=== PATIENT | male | born 1985 | race Caucasian/White ===

== ENCOUNTER 2022-08-06 18:38 | Emergency (ER) | payer OTHER, SELFPAY ==
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
[2022-08-06 18:43] VITALS: BP 118/68; PULSE 100; RESP 18; TEMP 36.6; O2SAT 98; BMI 37.1
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
[2022-08-06 22:24] VITALS: BP 119/84; PULSE 88; RESP 22; O2SAT 99
[2022-08-06] MEDS: Ibuprofen 600 MG TABLET PO (23:51)
== END 2022-08-06 23:56 | disposition home or self-care (01) ==
PROVIDERS: Emergency Provider Emergency Medicine
DX: Z04.1 Encounter for examination and observation following transport accident (principal); M79.10 Myalgia, unspecified site
CPT/HCPCS: 70450; 71045; 72125; 99283; 99284

== ENCOUNTER 2023-11-08 06:49 | Emergency (ER) | payer OTHER, SELFPAY ==
[2023-11-08 07:08] VITALS: BP 138/85; PULSE 109; O2SAT 99
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
--- NOTE | 2023-11-08 07:20 | MHC.EDTECH ---
pt changed over with [facility] from security. Belongings sent to tere.
[2023-11-08 07:21] VITALS: BP 115/65; PULSE 99; RESP 20; TEMP 37.2; O2SAT 99; BMI 36.3
--- NOTE | 2023-11-08 07:23 | PC.NURSE ---
Denies SI/ HI reports tried heroin for the first time. Reports snorted the heroin and then woke up with EMS. Matthew calling to ask why patient is in the ER , patient stating okay to tell matthew why he is here. Matthew updated , stating she will call his mother
[2023-11-08 07:52] LABS: Appearance Urine Clear; Color Urine Yellow; Glucose Urine UA 250 mg/dL (Negative); Leukocyte Esterase Urine Negative (Negative); Nitrite Urine Negative (Negative); UMIC TRIGGER UACC YES; Urine Blood Small (1+) (Negative); Urine Ketones Negative (Negative); Urine Protein 30 (1+) mg/dL (Neg-Trace)
[2023-11-08 08:05] LABS: Bacteria Urine None Seen (None Seen); Hyaline Casts Urine 0-2 /LPF (0-2); RBC Urine 0-2 /HPF (0-2); Squamous Epithelial Cell Urine 0-2 /HPF (0-2); WBC Urine 0-5 /HPF (0-5)
[2023-11-08 08:06] LABS: Amphetamine Screen Urine Not Detected (Not Detect); Barbiturates, Urine Not Detected (Not Detect); Benzodiazepines Screen Urine Not Detected (Not Detect); Buprenorphine Scr Not Detected (Not Detect); Cannabinoid Screen Urine POSITIVE (Not Detect); Cocaine Screen Urine POSITIVE (Not Detect); Fentanyl, urine POSITIVE (Not Detect); Methadone Screen, Urine Not Detected (Not Detect); Opiate Screen Urine POSITIVE (Not Detect); Oxycodone Screen Urine Not Detected (Not Detect); Phencyclidine Screen Urine Not Detected (Not Detect)
[2023-11-08] MEDS: Ondansetron ODT 4 MG TAB.RAPDIS TRANSLINGU (09:39)
--- NOTE | 2023-11-08 09:40 | PC.NURSE ---
Family at bedside, medicated per mar, seen by recovery
--- NOTE | 2023-11-08 10:24 | HO.SUDE ---
Met with pt in [id number] after pt presented after accidental overdose. Per triage note, patient reported he tried heroin for the first time, was given 12mg of Narcan by bystanders. Pt laying in bed, asleep, wakes to voice, difficult to engage in conversation, guarded and mumbles quietly. Pt reports using heroin/fentanyl, 1 bag IN this morning, which resulted in overdose. Pt reports he has not used heroin/fentanyl, pills, pressed pills, or opioids in the past. Pt reports he used today due to being bored. Pt reports he typically uses cocaine, INH. Pt reports last cocaine use yesterday, 1 gram, INH. Prior to yesterday pt reports last use was 3 months ago. Pt reports he has been able to maintain recovery utilizing God. Pt reports he has stopped going to [employer] but after today's incident plans on returning. Pt denies hx treatment for SHAY in the past. Pt reports he has supportive family and friends. Educated pt on recovery resources and supports as well as overdose prevention strategies. Pt is not interested in referrals at this time, will follow up outpatient if needed. Provided pt with written resources as well as t/w contact information if questions or concerns arise. Pt denies questions or concerns for t/w.
--- NOTE | 2023-11-08 12:11 | PC.NURSE ---
Resting comfortably, no further episodes of nausea/ vomiting , provider aware
[2023-11-08 13:30] VITALS: BP 119/69; PULSE 89; RESP 18; TEMP 37.2; O2SAT 98
[2023-11-08 13:34] VITALS: BP 119/69; PULSE 89; RESP 18; TEMP 37.2; O2SAT 98
[2023-11-08 13:48] VITALS: BP 119/69; PULSE 89; RESP 18; TEMP 37.2; O2SAT 98
== END 2023-11-08 13:49 | disposition home or self-care (01) ==
PROVIDERS: Emergency Provider Emergency Medicine
DX: T50.901A Poisoning by unspecified drugs, medicaments and biological substances, accidental (unintentional), initial encounter (principal); Y92.9 Unspecified place or not applicable; F14.10 Cocaine abuse, uncomplicated; F11.10 Opioid abuse, uncomplicated; F12.10 Cannabis abuse, uncomplicated; Z71.51 Drug abuse counseling and surveillance of drug abuser; Z79.899 Other long term (current) drug therapy
CPT/HCPCS: 80307; 81001; 99284; 99285

== ENCOUNTER 2024-02-23 16:09 | Emergency (ER) | payer OTHER, SELFPAY ==
[2024-02-23 16:30] VITALS: BP 121/65; PULSE 81; RESP 19; TEMP 36.5; O2SAT 98; BMI 17.8
--- NOTE | 2024-02-23 17:31 | ED.GENADULT ---
HPI - General Adult General Chief complaint: General Medical Stated complaint: toenail coming off Time Seen by Provider: 02/23/24 17:31 Source: patient Mode of arrival: ambulatory Limitations: no limitations History of Present Illness ED Provider: Pastora Quintanilla PA-C HPI narrative: Patient is a 38 year old assigned male at with no reported medical history presenting to the emergency department today with left great toe pain and back pain. Patient states that multiple years ago he injured his left great toe and his nail grew back incorrectly. Patient states that last night, he was tired of looking at the toe nail and tried to rip it off. Patient states that he only got half way done ripping it off when he stopped because it hurt. Patient states that he also had a fall 2 weeks ago and has middle back pain. Patient denies any dizziness, lightheadedness, abdominal pain, nausea, vomiting, fever, chills, blurry vision, double vision, loss of vision, chest pain, difficulty breathing, shortness of breath, back pain, night sweats, pain with urination, increased urinary frequency, increased urinary urgency, blood in his urine or stool, syncope or a near syncopal episode, bowel incontinence, bladder incontinence, or any other complaints at this time. Relieving factors: none Exacerbating factors: none Associated symptoms: denies other symptoms Treatments prior to arrival: none Related Data Previous Rx's ?Medication ?Instructions ?Recorded cyclobenzaprine 10 mg tablet 10 mg PO TID PRN muscle spasm #10 08/06/22 tabs ibuprofen 600 mg tablet 600 mg PO Q8H PRN fever or pain 08/06/22 #20 tabs cephalexin 500 mg capsule 500 mg PO Q6H 7 days #28 caps 02/23/24 naproxen 500 mg tablet 500 mg PO BID 7 days #14 tabs 02/23/24 Allergies Allergy/AdvReac Type Severity Reaction Status Date / Time No Known Allergies Allergy Verified 02/23/24 16:33 Review of Systems Constitutional: Constitutional: Reports no additional constitutional complaints, Denies chills, Denies fever(s) and Denies night sweats Eyes: Eyes: Reports no additional eye complaints, Denies blurry vision, Denies change in vision, Denies diplopia, Denies eye discharge, Denies loss of vision and Denies eye pain ENT: Denies dizziness Cardiovascular: Cardiovascular: Reports no additional cardiovascular complaints, Denies chest pain, Denies lightheadedness, Denies Loss of Consciousness and Denies dyspnea Respiratory: Respiratory: Reports no additional respiratory complaints and Denies dyspnea Gastrointestinal: Gastrointestinal: Reports no additional gastrointestinal complaints, Denies abdominal pain, Denies melena, Denies hematochezia, Denies change in bowel habits and Denies change in stool character Genitourinary: Genitourinary: Reports no additional male genitourinary complaints, Denies hematuria, Denies oliguria, Denies difficulty urinating, Denies dysuria, Denies urinary frequency, Denies urinary hesitancy, Denies urinary incontinence and Denies urinary urgency Musculoskeletal: Musculoskeletal: Reports no additional musculoskeletal complaints, Reports back pain, Denies numbness and Denies tingling Comments: left great toe nail partially removed Neurologic: Denies dizziness, Denies loss of vision, Denies numbness and Denies tingling Psychiatric: Psychiatric: Reports no additional psychiatric complaints Endocrine: Endocrine: Reports no additional endocrine complaints Hematologic/Lymphatic: Hematologic/Lymphatic: Reports no additional hematologic/lymphatic complaints Allergic/Immunologic: Allergic/Immunologic: Reports no additional allergic/immunologic complaints PMFSH Past Medical History Attestation statement: The following information was validated with the patient. Source: old records reviewed and nursing notes reviewed Social History Social History Alcohol intake: former Substance Use Type: Crack/Cocaine, Heroin and Marijuana Advance Directives: No Advance Directives Information Provided: No Do you have a plan to hurt others: No Plan Physical Exam ED Vital Signs: Vital Signs - 24 hr 02/23/24 16:30 Temperature 97.7 F Pulse Rate 81 Respiratory Rate 19 Blood Pressure 121/65 Pulse Oximetry 98 Oxygen Delivery Method Room Air BMI result Body Mass Index 17.8 Const General: cooperative, no acute distress, alert and awake Nutritional Appearance: well nourished Orientation/consciousness: patient oriented x3 Limitations: no limitations HENMT Head: Yes normal to inspection and Yes atraumatic Ears: hearing grossly normal bilaterally and external ears normal General nose exam: Normal external nose present, no nasal discharge noted and no epistaxis Face and sinus: Yes normal facial exam, No abrasion and No laceration Mouth: Normal oral and palatal mucosa present, no drooling and no muffled voice Eyes General: appearance normal, both eyes and all related structures Periorbital: periorbital findings normal Eyelids: Yes eyelids normal Conjunctivae: conjunctivae normal Pupils: Equal, round and reactive pupils present EOM: EOMs intact bilaterally Neck Neck: Yes normal visual inspection, Yes full ROM and Yes no lymphadenopathy Chest Chest palpation & inspection: normal inspection of the chest Resp Effort & Inspection: normal respiratory effort and able to speak in complete sentences GI Inspection: Yes normal to inspection Neuro General: patient oriented x3 and moves all extremities Cranial nerves: Yes Equal, round and reactive pupils present Cognition (Neuro): normal cognition Extrem Other: partially avulsed left great toe nail General: Yes full ROM and Yes capillary refill normal Psych Appearance: grossly normal Mental Status: mental status grossly normal Affect: normal affect Attitude: cooperative Thought process: Normal thought process present Thought content: Normal thought content present Insight: Good insight present (Psych) Medications Administered Discontinued Medications Generic Name Dose Route Start Last Admin Trade Name Freq PRN Reason Stop Dose Admin Cephalexin HCl 500 mg 02/23/24 17:41 02/23/24 18:02 Cephalexin 500 Mg Capsule PO 02/23/24 17:42 500 mg ONCE ONE Administration Oxycodone HCl 10 mg 02/23/24 17:41 02/23/24 18:02 Oxycodone Hcl Immed Release 5 Mg Tablet PO 02/23/24 17:42 10 mg ONCE ONE Administration Procedures Procedure Narrative Procedure Narrative: Left great toe nail was removed - without incident. Medical Decision Making Medical Decision Making MDM Narrative: Patient is a 38 year old assigned male at with no reported medical history presenting to the emergency department today with a partially avulsed left great toe nail and middle back pain. Patient's physical exam showed a partially removed left great toe nail but was otherwise unremarkable. I explained my physical exam findings to the patient. I answered all questions asked by the patient. Patient's left great toe nail was removed, without incident. I stressed the importance of the patient taking his medication as directed (either prescribed or as the over the counter packaging recommends). I stressed the importance of the patient following up with his primary care provider. I stressed the importance of the patient returning to the emergency department immediately if his symptoms were to worsen or if he were to develop any dizziness, shortness of breath, difficulty breathing, chest pain, blurry vision, loss of vision, nausea, vomiting, abdominal pain, fever, chills, back pain, or any other complaints. Patient verbalized agreement and understanding with this treatment plan and discharge. Differential Diagnosis Differential Diagnoses: The differential diagnosis associated with the presentation includes Nail avulsion Back pain Admission/Observation Consideration of admission/observation: Escalation of care including admission/observation considered Patient would have been admitted to the hospital had his work up had any findings where hospital admission was appropriate and his clinical presentation warranted hospital admission. Prescription Management I considered prescription management with: Pain Medication (patient prescribed pain medication) and Antibiotic (patient prescribed a prophylactic antibiotic) Discharge Plan Discharge Clinical Impression: Injury of nail bed of toe, Back pain Patient Disposition: Home, Self-Care Instructions: Back Pain (ED), Nail Removal (ED) Additional Instructions: Take your antibiotic as prescribed. Follow up with your primary care provider. Return to the emergency department immediately if your symptoms worsen or if you develop any dizziness, shortness of breath, difficulty breathing, chest pain, blurry vision, loss of vision, nausea, vomiting, abdominal pain, fever, chills, back pain, or any other complaints. Prescriptions: New cephalexin 500 mg capsule 500 mg PO Q6H 7 Days Qty: 28 0RF naproxen 500 mg tablet 500 mg PO BID 7 Days Qty: 14 0RF No Action ibuprofen 600 mg tablet 600 mg PO Q8H PRN (Reason: fever or pain) Qty: 20 0RF cyclobenzaprine 10 mg tablet 10 mg PO TID PRN (Reason: muscle spasm) Qty: 10 0RF Referrals: [facility] [place]] (Call to establish and follow up with a primary care provider. If you already have a primary care provider, please follow up with them.) [facility] [[facility]] (Call to establish and follow up with a primary care provider. If you already have a primary care provider, please follow up with them.) [facility] [[facility]] (Call to establish and follow up with a primary care provider. If you already have a primary care provider, please follow up with them.) Stand Alone Forms: Work/School Release Print Language: Martiniquais
[2024-02-23] MEDS: cephALEXin 500 MG CAPSULE PO (18:02)
[2024-02-23] MEDS: oxyCODONE HCl Immed Release 5 MG TABLET 10 MG PO (18:02)
[2024-02-23 18:09] VITALS: BP 121/65; PULSE 81; RESP 19; TEMP 36.5; O2SAT 98
== END 2024-02-23 18:10 | disposition home or self-care (01) ==
PROVIDERS: Emergency Provider Emergency Medicine
DX: M79.675 Pain in left toe(s) (principal); S91.202A Unspecified open wound of left great toe with damage to nail, initial encounter; W19.XXXA Unspecified fall, initial encounter; M54.89 Other dorsalgia; Y93.9 Activity, unspecified; Y92.9 Unspecified place or not applicable; Y99.9 Unspecified external cause status
CPT/HCPCS: 11730; 99283

== ENCOUNTER 2024-04-04 21:08 | Emergency (ER) | payer OTHER, SELFPAY ==
[2024-04-04 21:22] VITALS: BP 138/86; PULSE 106; O2SAT 97
--- NOTE | 2024-04-04 21:27 | ECG_ITS ---
Test Reason : DIZZINESS Blood Pressure : / mmHG Vent. Rate : 088 BPM Atrial Rate : 088 BPM P-R Int : 144 ms QRS Dur : 100 ms QT Int : 368 ms P-R-T Axes : 024 030 018 degrees QTc Int : 445 ms Normal sinus rhythm Nonspecific T wave abnormality Abnormal ECG No previous ECGs available Referred By: Bessie Brewer Electronically Signed By:NERIS JAVIER MD
--- NOTE | 2024-04-04 21:28 | ED.GENADULT ---
HPI - General Adult General Chief complaint: ETOH/Substance Use Stated complaint: coming from the medical center after using speedball Time Seen by Provider: 04/04/24 21:22 Source: patient and EMS Mode of arrival: EMS Limitations: altered mental status History of Present Illness ED Provider: Dr. Bessie Brewer HPI narrative: Patient comes to the emergency room via ambulance from the medical center. Seems that the patient was doing speed balls during service, started feeling lightheaded, nauseous and 911 was called. Patient admits to use drugs. Patient states that he is does not feel well. Denies chest pain or shortness of breath, a bit nauseous, no vomiting or diarrhea, no abdominal pain. Patient denies SI or HI Related Data Previous Rx's ?Medication ?Instructions ?Recorded cyclobenzaprine 10 mg tablet 10 mg PO TID PRN muscle spasm #10 08/06/22 tabs ibuprofen 600 mg tablet 600 mg PO Q8H PRN fever or pain 08/06/22 #20 tabs cephalexin 500 mg capsule 500 mg PO Q6H 7 days #28 caps 02/23/24 naproxen 500 mg tablet 500 mg PO BID 7 days #14 tabs 02/23/24 Allergies Allergy/AdvReac Type Severity Reaction Status Date / Time No Known Allergies Allergy Verified 04/04/24 21:34 Review of Systems Review of Systems: Constitutional : No Weight loss, No Fever, No Chills, No Night Sweats, No Fatigue, complaining of generalized malaise, not feeling well after using drugs ENT/Mouth : No Hearing loss, No Ear Pain, No Nasal Congestion, No Sinus Pain, No Hoarseness, No sore throat, No Rhinorrhea, No Swallowing Difficulty Eyes: No Eye Pain, No Swelling, No Redness, No Foreign Body, No Discharge, No Vision Changes Cardiovascular : No Chest Pain, No SOB, No Dyspnea on Exertion, No Orthopnea, No Edema, No Palpitations Respiratory : No Cough, No Sputum, No Wheezing, No Smoke Exposure, No Dyspnea Gastrointestinal : Complaining of Nausea, No Vomiting, No Diarrhea, No Constipation, No abdominal Pain, No Hematochezia, No Melena Genitourinary : no irregular bleeding, No Dysuria, No Urinary Frequency, No Hematuria, No Urinary Incontinence, No Urgency, No Flank Pain, No Urinary Flow Changes, No Hesitancy Musculoskeletal : No joint pain, No Myalgias, No Joint Swelling Skin : No Skin Lesions, No rash Neuro : No Weakness, No Numbness, No Paresthesias, No Loss of Consciousness, No Dizziness, No Headache Psych : No Anxiety/Panic, No Depression, No SI/HI/AH/VH, admits using drugs, Heme/Lymph: No Bruising, No Bleeding,No Lymphadenopathy Endocrine : No Polyuria, No Polydipsia, No Temperature Intolerance [facility] Past Medical History Medical History (Updated 04/04/24 @ 23:26 by Bessie Brewer MD) Polysubstance abuse Social History Social History Unable to assess alcohol history related to: Unknown Alcohol intake: former Use of substances other than those prescribed or required for medical reasons: Unknown Substance Use Type: Crack/Cocaine, Heroin and Marijuana Advance Directives: No Advance Directives Information Provided: Yes Do you have a plan to hurt others: No Plan Physical Exam ED Vital Signs: Vital Signs - 24 hr 04/04/24 22:48 04/05/24 00:39 04/05/24 01:28 Temperature 97.0 F 97.7 F Pulse Rate 98 90 84 Respiratory Rate 20 18 18 Blood Pressure 119/71 126/71 Pulse Oximetry 98 94 98 Oxygen Delivery Method Room Air Room Air 04/05/24 05:43 Temperature 97.9 F Pulse Rate 95 Respiratory Rate 16 Blood Pressure 128/74 Pulse Oximetry 97 Oxygen Delivery Method Room Air BMI result Body Mass Index 37.1 Const Other: Appearance: Alert. Oriented X3. Seems intoxicated/under the influence of drugs Eyes: Pupils equal, round and reactive to light. ENT: Pharynx normal. Neck: Normal inspection. Neck supple. No lymph nodes noted. No crepitus CVS: Normal heart rate and rhythm. Pulses normal. Normal S1 and S2 Respiratory: No respiratory distress. Breath sounds normal. No Wheezing. No rales Abdomen: Soft and nontender. No rigidity. No distention. Skin: Skin warm and dry. Normal skin color. Normal skin turgor. Extremities: No lower extremity edema. No Lacerations. No Rash Neuro: CN 2 through 12 grossly intact Psych: Anxious, confused Course Course Course Narrative: All Of patient's labs pending EKG pending Medical Decision Making Medical Decision Making [facility] Narrative: My interpretation of labs: Normal hematology and chemistry. ETOH negative, patient has not provided a urine sample My interpretation of EKG: Normal sinus rhythm, heart rate 88, no ST segment depression or elevation, no T-wave inversion, QTC 445 -patient sleeping comfortably -vitals are stable -physician observation started at 23:15 -07:35, patient is awake, alert and oriented x3. Patient denies SI or HI. Patient would like to see addiction medicine. Sign-out given to my colleague Dr. Luciano Differential Diagnosis Differential Diagnoses: The differential diagnosis associated with the presentation includes (ETOH intoxication, polysubstance abuse) Admission/Observation Consideration of admission/observation: Escalation of care including admission/observation considered (Patient is under physician observation waiting to become sober to be discharged) Lab Data MDM Lab Attestation statement: I reviewed the patient's lab results. 04/04/24 22:00 04/04/24 22:00 Labs: Lab Results 04/04/24 Range/Units 22:00 WBC 9.6 (4.8-10.8) X10*3/uL RBC 5.45 (4.60-5.80) X10*6/uL Hgb 15.5 (14.0-18.0) g/dl Hct 46.2 (42.0-52.0) % MCV 84.8 (80.0-98.0) fL MCH 28.4 (27.0-33.0) pg MCHC 33.5 (31.0-36.0) g/dl RDW 14.2 (11.0-16.0) % Plt Count 408 H (160-400) X10*3/uL MPV 8.2 L (9.4-12.4) fL Immature Gran % (Auto) 1.2 H (0.0-0.4) % Neut % (Auto) 56.7 (45-73) % Lymph % (Auto) 32.1 (20-40) % [place] % (Auto) 6.2 (2-11) % Eos % (Auto) 3.1 (0-4) % Baso % (Auto) 0.7 (0-2) % Lymph # (Auto) 3.1 (1.2-4.9) X10*3/uL [place] # (Auto) 0.6 (0.1-1.2) X10*3/uL Eos # (Auto) 0.3 (0.0-0.4) X10*3/uL Baso # (Auto) 0.1 (0.0-0.2) X10*3/uL Abs Immat Gran (auto) 0.11 H (0.00-0.03) X10*3/uL Absolute Neuts (auto) 5.4 (2.0-8.3) x10*3/uL Absolute Nucleated RBC 0.000 (0.0-0.012) X10*3/uL Nucleated RBC % (auto) 0.0 (0.0-0.2) /100WBC PT 10.9 (10.9-12.4) SEC INR 0.9 (0.9-1.1) Sodium 143 (135-145) mmol/L Potassium 3.5 (3.3-5.1) mmol/L Chloride 106 (96-108) mmol/L Carbon Dioxide 26 (22-29) mmol/L Anion Gap 15 (12-20) BUN 11 (9-16) mg/dL Creatinine 1.26 (0.5-1.4) mg/dL Estim Creat Clear Calc 89.0 Estimated GFR > 60 Random Glucose 149 H (60-115) mg/dL Calcium 9.5 (8.4-10.2) mg/dL Total Bilirubin 0.3 (0.0-1.0) mg/dL Direct Bilirubin 0.1 (0.0-0.5) mg/dL AST 21 (5-37) U/L ALT 23 (0-40) U/L Alkaline Phosphatase 85 (39-117) U/L Troponin I High Sens < 2.7 (<3.5-35.0) ng/L Total Protein 7.4 (6.5-8.0) g/dL Albumin 4.2 (3.5-5.0) g/dL Ethyl Alcohol < 10 mg/dL Critical Care Time Critical Care Time Critical Care Time: Yes Total Critical Care Time: 45 Attestation: I have personally provided critical care time. Time includes review of lab data, radiology results, discussion with consultants, and monitoring for potential decompensation. Intervention performed as documented. Discharge Plan Discharge Clinical Impression: Polysubstance abuse Patient Disposition: Home, Self-Care Instructions: Polysubstance Abuse (ED) Additional Instructions: Please follow-up with your primary care physician tomorrow. If you have any worsening or new symptoms, please return to the emergency room or call 911 Prescriptions: No Action ibuprofen 600 mg tablet 600 mg PO Q8H PRN (Reason: fever or pain) Qty: 20 0RF cyclobenzaprine 10 mg tablet 10 mg PO TID PRN (Reason: muscle spasm) Qty: 10 0RF cephalexin 500 mg capsule 500 mg PO Q6H 7 Days Qty: 28 0RF naproxen 500 mg tablet 500 mg PO BID 7 Days Qty: 14 0RF Print Language: Wolof
[2024-04-04 21:32] VITALS: BMI 37.1
[2024-04-04 22:06] LABS: MANUAL DIFF FLAG NO
[2024-04-04 22:08] LABS: Basophils Absolute Auto 0.1 X10*3/uL (0.0-0.2); Basophils Percent Auto 0.7 % (0-2); Eosinophils Absolute Auto 0.3 X10*3/uL (0.0-0.4); Eosinophils Percent Auto 3.1 % (0-4); Hematocrit 46.2 % (42.0-52.0); Hemoglobin 15.5 g/dl (14.0-18.0); Imm Gran Abs Auto 0.11 X10*3/uL (0.00-0.03); Imm Gran Pct Auto 1.2 % (0.0-0.4); Lymphocytes Absolute Auto 3.1 X10*3/uL (1.2-4.9); Lymphocytes Percent Auto 32.1 % (20-40); Mean Corpuscular HGB Conc 33.5 g/dl (31.0-36.0); Mean Corpuscular Hemoglobin 28.4 pg (27.0-33.0); Mean Corpuscular Volume 84.8 fL (80.0-98.0); Mean Platelet Volume 8.2 fL (9.4-12.4); Monocytes Absolute Auto 0.6 X10*3/uL (0.1-1.2); Monocytes Percent Auto 6.2 % (2-11); Neutrophils Absolute Auto 5.4 x10*3/uL (2.0-8.3); Neutrophils Percent Auto 56.7 % (45-73); Platelet Count 408 X10*3/uL (160-400); Red Blood Count 5.45 X10*6/uL (4.60-5.80); Red Cell Distribution Width 14.2 % (11.0-16.0); White Blood Count 9.6 X10*3/uL (4.8-10.8)
[2024-04-04 22:13] LABS: INTERNATIONAL NORM RATIO 0.9 (0.9-1.1); Prothrombin Time 10.9 SEC (10.9-12.4)
[2024-04-04 22:26] LABS: Alanine Aminotransferase 23 U/L (0-40); Albumin Level 4.2 g/dL (3.5-5.0); Alkaline Phosphatase 85 U/L (39-117); Anion Gap 15 (12-20); Aspartate Amino Transferase 21 U/L (5-37); Bilirubin Direct 0.1 mg/dL (0.0-0.5); Bilirubin Total 0.3 mg/dL (0.0-1.0); Blood Urea Nitrogen 11 mg/dL (9-16); Calcium 9.5 mg/dL (8.4-10.2); Carbon Dioxide 26 mmol/L (22-29); Chloride 106 mmol/L (96-108); Estimated Glomerular Filt Rate > 60; Ethanol < 10 mg/dL; Glucose Random 149 mg/dL (60-115); Potassium 3.5 mmol/L (3.3-5.1); Sodium 143 mmol/L (135-145); Total Protein 7.4 g/dL (6.5-8.0)
[2024-04-04 22:33] LABS: Troponin-I High Sensitivity < 2.7 ng/L (<3.5-35.0)
[2024-04-04 22:48] VITALS: BP 119/71; PULSE 98; RESP 20; TEMP 36.1; O2SAT 98
[2024-04-05 00:39] VITALS: PULSE 90; RESP 18; O2SAT 94
[2024-04-05 01:28] VITALS: BP 126/71; PULSE 84; RESP 18; TEMP 36.5; O2SAT 98
[2024-04-05 05:43] VITALS: BP 128/74; PULSE 95; RESP 16; TEMP 36.6; O2SAT 97
[2024-04-05 08:11] VITALS: BP 123/72; PULSE 79; RESP 16; TEMP 36.5; O2SAT 99
--- NOTE | 2024-04-05 09:50 | PC.NURSE ---
patient ambulated to bathroom with steady gait, still unable to provide urine sample at this time
--- NOTE | 2024-04-05 10:18 | MHC.RECOVRN ---
Met with pt in [id number] after pt requested to meet with Addiction Medicine. Pt laying in bed, asleep, wakes to touch, reports he hasn't slept in 4 days. Pt reports cocaine use, INH, $500 over the past 4 days. Pt reports he typically uses at least $100 daily. Pt reports he did not use for 2 months a couple months ago but has been using nearly daily since then. Pt denies hx treatment for substance use. Pt unable to provide urine sample at this time, however, in October 2023 pt experienced an overdose and UDS was positive for opiates, fentanyl, cocaine, marijuana. Pt is interested in ATS. T/w will conduct bedsearch.
[2024-04-05] MEDS: Naloxone HCl Nasal TAKE HOME 4 MG SPRAY 8 MG NOSTRILALT (11:34)
--- NOTE | 2024-04-05 11:36 | PC.NURSE ---
addiction medicine down to speak with patient again, patient states he is unable to provide urine sample, patient educated that [facility] not have any beds at this time patinet to be discharged and instructed to follow up in AM if detox is still what he wants
[2024-04-05 11:39] VITALS: BP 123/72; PULSE 79; RESP 16; TEMP 36.5; O2SAT 99
--- NOTE | 2024-04-05 11:44 | MHC.RECOVRN ---
Met with pt to follow up. Pt has not provided urine sample in order to send referral. Pt denies substance use other than cocaine. [facility] to see if they have bed availability today, they do not. Pt unsure if he would want to travel out of the area for ATS. Pt provided with written resources and ATS information, encouraged to present as walk in to [facility] at 8AM if he continues to desire ATS level of care. Denies questions or concerns for t/w. Discussed with RN and provider.
== END 2024-04-05 11:46 | disposition home or self-care (01) ==
PROVIDERS: Emergency Provider Emergency Medicine
DX: R42 Dizziness and giddiness (principal); R11.0 Nausea; F14.129 Cocaine abuse with intoxication, unspecified; R94.31 Abnormal electrocardiogram [ECG] [EKG]; R10.2 Pelvic and perineal pain; Z51.81 Encounter for therapeutic drug level monitoring; Z79.899 Other long term (current) drug therapy
CPT/HCPCS: 36415; 80048; 80076; 80307; 84484; 85025; 85610; 93005; 99285

== ENCOUNTER → 2024-04-04 21:27 | Outpatient (BNV) | payer OTHER, SELFPAY | PROVIDERS: Emergency Provider Emergency Medicine; Visit Provider Internal Medicine Cardiovascular Disease | DX: R94.31 Abnormal electrocardiogram [ECG] [EKG] (principal) | CPT/HCPCS: 93010 ==

== ENCOUNTER 2024-04-23 14:39 | Emergency (ER) | payer OTHER, SELFPAY ==
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
[2024-04-23 14:44] VITALS: BP 136/79; PULSE 117; RESP 20; TEMP 36.4; O2SAT 100; BMI 36.9
[2024-04-23 16:21] VITALS: BP 136/79; PULSE 117; RESP 20; TEMP 36.4; O2SAT 100
== END 2024-04-23 16:21 | disposition home or self-care (01) ==
PROVIDERS: Emergency Provider Emergency Medicine
DX: S13.4XXA Sprain of ligaments of cervical spine, initial encounter (principal); S39.012A Strain of muscle, fascia and tendon of lower back, initial encounter; M54.2 Cervicalgia; V43.52XA Car driver injured in collision with other type car in traffic accident, initial encounter; Y93.89 Activity, other specified; Y92.488 Other paved roadways as the place of occurrence of the external cause; Y99.8 Other external cause status
CPT/HCPCS: 72040; 72100; 99282; 99283

== ENCOUNTER 2024-09-08 09:13 | Emergency (ER) | payer OTHER, SELFPAY ==
--- NOTE | ~2024-09-08 | XR_ITS ---
EXAMINATION: XR TOES, LEFT CLINICAL INFORMATION: lt gret toe injury COMPARISON: None available. TECHNIQUE: 3 views of the left toes were obtained. FINDINGS: No fracture, dislocation, or suspicious bone lesion. Normal bone mineralization. Normal alignment. Minimal degenerative arthritis in the first MTP joint. Joint spaces otherwise normal. Soft tissues appear normal. XR/XR toe LT min 2V IMPRESSION: No acute bony or soft tissue abnormalities. Electronically signed by: Kurtis Car MD 09/08/2024 09:40 AM EDT
[2024-09-08 09:17] VITALS: BP 117/72; PULSE 92; RESP 16; TEMP 37.1; O2SAT 100; BMI 39.5
--- NOTE | 2024-09-08 10:36 | ED_ITS ---
HPI - General Adult General Chief complaint: Extremity Injury, Lower Stated complaint: Toe injury Time Seen by Provider: 09/08/24 09:38 Source: patient Mode of arrival: ambulatory Limitations: no limitations History of Present Illness ED Provider: Robert Henao [facility] narrative: 39 yold male presents to the ED for left index toe pain after hitting toe on foot last night on bed post. patient denies any other complaints or trauma. Related Data Previous Rx's ?Medication ?Instructions ?Recorded cyclobenzaprine 10 mg tablet 10 mg PO TID PRN muscle spasm #10 08/06/22 tabs ibuprofen 600 mg tablet 600 mg PO Q8H PRN fever or pain 08/06/22 #20 tabs cephalexin 500 mg capsule 500 mg PO Q6H 7 days #28 caps 02/23/24 naproxen 500 mg tablet 500 mg PO BID 7 days #14 tabs 02/23/24 cyclobenzaprine 10 mg tablet 10 mg PO TID PRN muscle spasm #14 04/23/24 tabs naproxen 500 mg tablet 500 mg PO BID PRN pain #14 tabs 09/08/24 Allergies Allergy/AdvReac Type Severity Reaction Status Date / Time No Known Allergies Allergy Verified 09/08/24 09:18 Review of Systems 2 Review of Systems: left big toe Yes all other systems are reviewed and are negative PMFSH Past Medical History Medical History Polysubstance abuse Social History Social History Unable to assess alcohol history related to: Unknown Alcohol intake: former Substance Use Type: Crack/Cocaine, Heroin and Marijuana Advance Directives: No Advance Directives Information Provided: Yes Do you have a plan to hurt others: No Plan Physical Exam ED Vital Signs: Vital Signs - 24 hr 09/08/24 09:17 Temperature 98.7 F Pulse Rate 92 Respiratory Rate 16 Blood Pressure 117/72 Pulse Oximetry 100 Oxygen Delivery Method Room Air BMI result Body Mass Index 39.5 Const General: cooperative, healthy appearing, comfortable, no acute distress, well developed, alert, awake and Physically active Orientation/consciousness: patient oriented x3 HENMT Head: Yes normal to inspection, Yes No palpable skull fracture present, Yes normocephalic and Yes atraumatic Eyes General: appearance normal, both eyes and all related structures Neck Neck: Yes normal visual inspection, Yes full ROM, Yes no lymphadenopathy, Yes no meningeal signs, Yes trachea midline, Yes supple, No anterior neck swelling and No tender Chest Chest palpation & inspection: normal inspection of the chest and normal palpation of entire chest wall Resp Effort & Inspection: normal respiratory effort and able to speak in complete sentences Auscultation: clear to auscultation bilaterally Cardio Jugular venous distension: no JVD Heart sounds: S1 normal heart sound present and S2 normal heart sound present GI Inspection: Yes normal to inspection Palpation (GI): Soft to palpation, not firm, nontender, no guarding and not rigid General: Yes no CVA tenderness Back/Spine/Pelvis Back: no CVA tenderness and No back tenderness Skin General skin exam: no rashes or lesions noted, elasticity normal and turgor normal Neuro General: patient oriented x3, gait normal, tone normal, moves all extremities, Normal light touch and pain sensation, no meningeal signs, no focal motor deficits, CN's II-XI intact bilaterally and normal sensation to monofilament Extrem General: Yes normal to inspection, Yes full ROM and Yes capillary refill normal Ankle/foot/toe images: 2 1. Positive for ecchymosis and tenderness. Negative for crepitus, deformity, erythema, hotness, coldness, pus discharge, or foul odor. Rest of extremity normal. Motor/neuro/vascular exam intact Psych Appearance: grossly normal, well kempt and not disheveled Medical Decision Making Medical Decision Making MDM Narrative: 39-year-old male presents to ED for left big toe pain after hitting toe in bed last night. X-ray negative for fracture. Physical exam does not indicate cellulitis, compartment syndrome, arterial occlusion, necrotizing fasciitis, osteomyelitis, DVT, lymphangitis, any life-threatening etiology. Patient is educated on ice elevation rest and pain medication. Patient explained worrisome signs and informed to return to the ED for has the Differential Diagnosis Differential Diagnoses: The differential diagnosis associated with the presentation includes (Fracture dislocated) Admission/Observation Consideration of admission/observation: Escalation of care including admission/observation considered Independent Interpretation I performed an independent interpretation of an: Plain X-Ray Radiology Impression Discussion of test interpretation with radiology: I have reviewed the radiologist's reading. Independent Historian Clinical information obtained from an independent historian. History obtained from or confirmed by: Other (Patient) Prescription Management I considered prescription management with: Pain Medication Discharge Plan Discharge Clinical Impression: Contusion Patient Disposition: Home, Self-Care Instructions: Contusion in Adults (ED), Bone Bruise (ED) Additional Instructions: Recommend follow up with primary care provider. Recommend ice elevation and pain medication. Return to the ED for worsening pain, swelling, redness, bluish black discoloration, inability to walk, or any other concerning symptoms. Prescriptions: New naproxen 500 mg tablet 500 mg PO BID PRN (Reason: pain) Qty: 14 0RF No Action ibuprofen 600 mg tablet 600 mg PO Q8H PRN (Reason: fever or pain) Qty: 20 0RF cyclobenzaprine 10 mg tablet 10 mg PO TID PRN (Reason: muscle spasm) Qty: 10 0RF cephalexin 500 mg capsule 500 mg PO Q6H 7 Days Qty: 28 0RF naproxen 500 mg tablet 500 mg PO BID 7 Days Qty: 14 0RF cyclobenzaprine 10 mg tablet 10 mg PO TID PRN (Reason: muscle spasm) Qty: 14 0RF Stand Alone Forms: Work/School Release Interventions: ED Discharge Assessment Last Done: 09/08/24 10:49 Discharge Date/Time: 09/08/24 10:51 Print Language: Estonian
--- OUTSIDE RECORDS SUMMARY | 2024-09-08 10:41 | XMS_ITS | Clinical Summary ---
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; dispense nebulizer and tubing and mouthpiece/mask 1 Each Active inhalational spacing deviceIndication s:Moderate persistent asthma without complication UAD 1 Each 1 2 Active traZODone (DESYREL) 100 mg tabletIndication s:Primary insomnia Take 1 Tablet by mouth nightly at bedtime as needed for sleep for up to 30 days 30 Tablet 4 Active albuterol (PROVENTIL) 2.5 mg /3 mL (0.083 %) nebulizer solutionIndicati ons:Moderate persistent asthma without complication Take 3 mL by nebulization every 6 (six) hours as needed for wheezing 75 mL 5 Active albuterol HFA (VENTOLIN HFA) 90 mcg/actuation inhalerIndicatio ns:Moderate persistent asthma without complication INHALE 2 PUFFS INTO THE LUNGS EVERY 6 HOURS NEEDED FOR SHORTNESS OF BREATH 18 g 1 5 Active fluticasone furoate-vilanter oL (BREO ELLIPTA) 200-25 mcg/doseIndicati ons:Moderate persistent asthma without complication Inhale 1 Puff into the lungs daily (Rinse mouth following use) 60 Each 5 5 Active naproxen (NAPROSYN) 500 mg tabletIndication s:Radiculopathy affecting upper extremity,Polyar thralgia TAKE 1 TABLET BY MOUTH TWICE A DAY WITH MEALS 60 Tablet 2 Active gabapentin (NEURONTIN) 300 mg capsuleIndicatio ns:Radiculopathy affecting upper extremity Take 1 Capsule by mouth 2 (two) times daily 180 Capsule Active Active Problems Problem Noted Date Diagnosed Date Food insecurity 08/15/2024 Financial difficulties 08/15/2024 Lack of access to transportation 08/15/2024 Lack of housing 07/25/2024 Class 3 severe obesity due t o excess calories with body mass index (BMI) of 40.0 to 44.9 in adult ([facility]) 07/25/2024 Substance use disorder 04/21/2022 Overview (07/25/2024): Former crack cocaine use, had episode of sniffing heroin in 2023 which required resuscitation Anxiety 04/21/2022 Tobacco use disorder 04/21/2022 Moderate persistent asthma without complication 08/26/2021 PTSD (post-traumatic stress disorder) 03/18/2021 Overview (03/18/2021): Related to history of committing murder (manslaughter), history of incarceration 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 Overview (03/18/2021): Per patient Primary insomnia 07/21/2018 Screening for STD (sexually transmitted disease) 06/29/2014 Mild episode of recurrent ma george depressive disorder ([facility]) 06/29/2014 Overview (04/21/2022): Mar 2022: depressed over financial issues, former addition issues, declines counseling- relies on iva Resolved Problems Problem Noted Date Diagnosed Date Resolved Date Asthma 06/29/2014 04/21/2022 Encounters Date Type Department Care Team Description 07/25/2024 2:40 PM EST Office Visit [address] [phone] Elier Nelson FNP Examination, medical, general (Primary Dx); Substance use disorder; Moderate persistent asthma without complication; Radiculopathy affecting upper extremity; Polyarthralgia; Tobacco use disorder; Mild episode of recurrent major depressive disorder (HCC-CMS); Partial deletion of chromosome 9; Anxiety; Homeless; PTSD (post-traumatic stress disorder); Elevated fasting glucose; Class 3 severe obesity due to excess calories with body mass index (BMI) of 40.0 to 44.9 in adult, unspecified whether serious comorbidity present (HCC-CMS); Snoring from Last 3 Months Immunizations Name Administration Dates Next Due PNEUMOCOCCAL POLYSACCHARIDE PPV23 07/21/2018 TDAP 07/21/2018 Family History Medical History Relation Name Comments Other Daughter autism, genetic issue Lung Disease Father emphysema Diabetes Maternal Grandmother Heart Problems Maternal Grandmother Hypertension Maternal Grandmother Arthritis Mother Diabetes Mother prediabetes Lung Disease Mother asthma Other Mother heaert issues? Gastrointestinal Problems Sister Relation Name Status Comments Daughter Father Alive Maternal Grandmother Mother Alive Sister Social History Tobacco Use Types Packs/Day Years Used Date Smoking Tobacco: Every Day Cigarettes 0.1 10 Smokeless Tobacco: Never Tobacco Cessation:Ready to Q uit: Not Asked; Counseling Given: Not Answered Alcohol Use Standard Drinks/Week Comments No 0 (1 standard drink = 0.6 oz pur e alcohol) quit Social Connections Answer Date Recorded Connectedness 1 08/15/2024 Financial Resource Strain Answer Date R ecorded Financial Resource Strain 2 2024 Stress Answer Date Recorded Stress 1 08/15/2024 Physical Activity Answer Date Recorded Physical Activity 0 02/19/2019 Food Insecurity Answer Date Recorded Food 2 08/15/2024 Transportation Needs Answer Date Record ed Transportation 1 08/15/2024 Housing Stability Answer Date Recorded Housing 2 08/15/2024 Safety and Environment Answer Date [place] r[place] Safety 0 04/21/2022 Utilities Answer Date Recorded Utilities 2 08/15/2024 Employment Answer Date Recorded Employment 0 02/19/2019 Sex and Gender Information Value Date Recorded Sex Assigned at Male 08/29/2017 5:15 AM PST Legal Sex Male 7:56 AM PDT Gender Identity Male 08/29/2017 5:15 AM PST Sexual Orientation Straight 07/21/2018 11 :29 AM PST Occupation Industry Job Start Date Job End Date on disability for mental health Not on file Not on fi le Not on file Last Filed Vital Signs Vital Sign Reading Time Taken Comments Blood Pressure 117/69 07/25/2024 3:10 PM EST Pulse 72 07/25/2024 3:10 PM EST Temperature 36.8 ??C (98.3 ??F) 07/25/2024 3:10 PM ES T Respiratory Rate 18 07/25/2024 3:10 PM EST Oxygen Saturation 98% 07/25/2024 3:10 PM EST Inhaled Oxygen Concentration - - Weight 113.1 kg (249 lb 6.4 oz) 07/25/2024 3:10 PM EST Height 167.6 cm (5' 6 ) 07/25/2024 3:10 PM EST Body Mass Index 40.25 07/25/2024 3:10 PM EST Plan of Treatment Upcoming Encounters Date Type Department Care Team (Late st Contact Info) Description 10/13/2024 9:40 AM EDT Telemedicine Visit [facility] [address] [place] [phone] Dara Tran, RN [address] [place] [address] Health Maintenance Due Date Last Done Comments Imm-Pneumococcal (2 of 2 - PCV) 07/21/2019 9 Diabetes Screening 04/21/2023 04/21/2022, 1 , 08/19/2018, Additional history exists Syphilis Screening 04/21/2023 04/21/2022, 06/29/2014 [id number] ( season) 2024 Depression Monitoring 10/23/2024 07/25/2024 , 04/21/2022, 10/28/2021, Additional history exists Lipid Screening 04/21/2025 04/21/2022, 07/30, 10/30/2015, Additional history exists Hypertension Screening (#1) 07/25/2025 06/29/2014 Medicare Annual Wellness Visit 07/25/2025 07/25/2024 Tobacco Cessation Counseling (#1) 07/25/2025 04/08/2023, 03/10/2023, 04/21/2022, Additional history exists Imm-DTaP/Tdap/Td (2 - Td or Tdap) 07/21/2028 019 Imm-Influenza Discontinued 06/29/2014 (Declined) HIV Screening Completed 04/21/2022, 06/29/2014 Hepatitis C Screening Completed 04/21/2022, 015 Alcohol and Drug Screen Completed 07/25/19, 10/28/2021, 08/26/2021, Additional history exists Imm-Hepatitis B Discontinued Goals Goal Patient Goal Type Associated Problems Recent Progress Patient-Stated? Author none Case Management Jose Aguilar Note: To be achieved by clinicisn, with a specific plan Attend outside AA meetings Procedures Procedure Name Priority Date/Time Associated Diagnosis Comments HIV 1/2 AG & AB W/RFLX (4TH GEN) Routine 04/21/2022 11:21 AM EDT Examination, medical, general SYPHILIS ANTIBODY CASCADING REFLEX Routine 04/21/2022 11:21 AM EDT Examination, medical, general HEPATITIS C AB W/RFLX HCV RNA, QT, RT PCR Routine 04/21/2022 11:21 AM EDT Examination, medical, general Other problems related to lifestyle COMPREHENSIVE METABOLIC PANEL Routine 04/21/2022 11:21 AM EDT Examination, medical, general LIPID PANEL Routine 04/21/2022 11:21 AM EDT Examination, medical, general from Last 3 Months or Most Recently Relevant to Health Maintenance Results * HEPATITIS C AB W/RFLX HCV RNA, QT, RT PCR (04/21/2022 11:21 AM EDT) HEPATITIS C ANTIBODY NON-REACT KAVON NON-REACT KAVON [facility] SIGNAL TO CUT-OFF 0.07 <1.00 [facility] Comment: HCV antibody was non-reactive. There is no laboratory evidence of HCV infection. In most cases, no further action is required. However, if recent HCV exposure is suspected, a test for HCV RNA (test code 10632) is suggested. For additional information please refer to http://education.Phylogy/faq/YYP72z8 (This link is being provided for informational/ educational purposes only.) Blood Blood / Unknown 04/21/2022 1 1:21 AM EDT 04/21/2022 11:23 AM EDT [facility] - BLOOD DRAW Edited [facility] Performing Organization Address [facility] de Phone Number [place] [facility] [address] [address], [place] [address] [address] * SYPHILIS ANTIBODY CASCADING REFLEX (04/21/2022 11:21 AM EDT) T. PALLIDUM AB, EIA NEGATIVE NEGATIVE [facility] Comment: No antibodies to T. pallidum (the agent causing syphilis) were detected in the specimen. This result, however, does not exclude very recent T. pallidum infection; testing of a second specimen, collected 2-4 weeks after this specimen, is recommended if the index of suspicion for recent infection is high. Blood Blood / Unknown 04/21/2022 1 1:21 AM EDT 04/21/2022 11:23 AM EDT [facility] - BLOOD DRAW Edited [facility] Performing Organization Address [facility] de Phone Number [place] [address] [address], [place] [address] [address] * HIV 1/2 AG & AB W/RFLX (4TH GEN) (04/21/2022 11:21 AM EDT) HIV AG/AB, 4TH GEN NON-REAC TIVE NON-REAC TIVE [facility] Comment: HIV-1 antigen and HIV-1/HIV-2 antibodies were not detected. There is no laboratory evidence of HIV infection. PLEASE NOTE: This information has been disclosed to you from records whose confidentiality may be protected by state law. ??If your state requires such protection, then the state law prohibits you from making any further disclosure of the information without the specific written consent of the person to whom it pertains, or as otherwise permitted by law. A general authorization for the release of medical or other information is NOT sufficient for this purpose. ?? For additional information please refer to http://SavvyCard/faq/GUO048 (This link is being provided for informational/ educational purposes only.) The performance of this assay has not been clinically validated in patients less than 2 years old. Blood Blood / Unknown 04/21/2022 1 1:21 AM EDT 04/21/2022 11:23 AM EDT Elier Nelson HOME SERVICE CONSULTANT LAB - BLOOD DRAW Final Re sult [facility] [address] [place] [id number], [facility] [address] [place] [address],[place] [address] * (ABNORMAL) LIPID PANEL (04/21/2022 11:21 AM EDT) CHOLESTEROL, TOTAL 179 <200 mg/dL [facility] HDL CHOLESTEROL 54 > OR = 40 mg/dL [facility] TRIGLYCERIDES 107 <150 mg/dL [facility] LDL-CHOLESTEROL 105(H) 99 mg/dL (calc) [facility] Comment: Reference range: <100 Desirable range <100 mg/dL for primary prevention; ?? <70 mg/dL for patients with CHD or diabetic patients with > or = 2 CHD risk factors. LDL-C is now calculated using the Ray-Fara calculation, which is a validated novel method providing better accuracy than the Friedewald equation in the estimation of LDL-C. Ray WELCH et al. CHASTITY. 2013;310(19): 8451-3522 (http://Personal Development Bureau.Tepha/faq/PZV138) CHOL/HDLC RATIO 3.3 <5.0 (calc) [facility] NON-HDL CHOLESTEROL 125 <130 mg/dL (calc) [facility] Comment: For patients with diabetes plus 1 major ASCVD risk factor, treating to a non-HDL-C goal of <100 mg/dL (LDL-C of <70 mg/dL) is considered a therapeutic option. Blood Blood / Unknown 04/21/2022 1 1:21 AM EDT 04/21/2022 11:23 AM EDT Elier Nelson HOME SERVICE CONSULTANT LAB - BLOOD DRAW Final Re sult [place] [facility] [address] [address], [place] [facility] [address] [address] * (ABNORMAL) COMPREHENSIVE METABOLIC PANEL (04/21/2022 11:21 AM EDT) GLUCOSE 121(H) 65 - 99 mg/dL [facility] Comment: ?Fasting reference interval For someone without known diabetes, a glucose value between 100 and 125 mg/dL is consistent with prediabetes and should be confirmed with a follow-up test. UREA NITROGEN (BUN) 17 7 - 25 mg/dL [facility] CREATININE (blood) 1.15 0.60 - 1.26 mg/dL [facility] EGFR 84 > OR = 60 mL/min/1 .73m2 [facility] Comment: The eGFR is based on the CKD-EPI 2020 equation. To calculate the new eGFR from a previous Creatinine or Cystatin C result, go to https://www.kidney.org/professionals/ kdoqi/gfr%5Fcalculator BUN/CREATININE RATIO NOT APPLICABLE 6 - 22 [facility] SODIUM 138 135 - 146 mmol/L [facility] POTASSIUM 4.4 3.5 - 5.3 mmol/L [facility] CHLORIDE 105 98 - 110 mmol/L [facility] CARBON DIOXIDE 28 20 - 32 mmol/L [facility] CALCIUM 9.4 8.6 - 10.3 mg/dL [facility] PROTEIN, TOTAL 7.1 6.1 - 8.1 g/dL [facility] ALBUMIN 4.1 3.6 - 5.1 g/dL [facility] GLOBULIN 3.0 1.9 - 3.7 g/dL (calc) [place] ALBUMIN/GLOBUL IN RATIO 1.4 1.0 - 2.5 (calc) [facility] BILIRUBIN, TOTAL 0.4 0.2 - 1.2 mg/dL [facility] ALKALINE PHOSPHATASE 76 36 - 130 U/L [facility] AST 28 10 - 40 U/L [facility] ALT 47(H) 9 - 46 U/L [facility] Blood Blood / Unknown 04/21/2022 1 1:21 AM EDT 04/21/2022 11:23 AM EDT [facility] - BLOOD DRAW Edited R esult - Final [facility] [address] [address], [place] [facility] [address] [address] from Last 3 Months or Most Recently Relevant to Health Maintenance Insurance [place] MEDICAID [facility] Member Subscriber Plan / Payer (Ef fective 2022-Present) Name:Anderson Acevedo Relation to Subscriber:Self Name:Anderson Acevedo Payer ID:[id number] Group ID:Not on file Type:Indemnity Address: [address] [place] [address] Care Teams Director Cardiovascular Relationship Specialty Start Date End Date Elier Nelson FNP [address] [place] [address] PCP - General Family Medicine, BEAD STRINGER 7/15/21
--- OUTSIDE RECORDS SUMMARY | 2024-09-08 10:41 | XMS_ITS ---
Author Organization [facility] Address [address] [place] [address] Care Team Providers Care Care Consultant Name Role Phone Elier Nelson Primary Care Provider [phone] [facility] Asthma Program Status:Enrolled (Active) Start date:03/10/2023 Enrollment date:03/10/2023 Enrollment reason:Referred by provider Case Team Name Relationship Phone Jose Francisco Del Cid PharmD (Responsible Staff) Continued Care and Services Coordination
--- OUTSIDE RECORDS SUMMARY | 2024-09-08 10:41 | XMS_ITS | Clinical Summary ---
Author Organization [facility] Address [address] [place] [address] Care Team Providers Care Mold Shaker Name Role Phone Unavailable Primary Care Provider Unavailabl e Social History Tobacco Use Types Packs/Day Years Used Date Smoking Tobacco: Never Assessed Sex and Gender Information Value Date Recorded Sex Assigned at Not on file Legal Sex Male 12:15 AM EST Gender Identity Not on file Sexual Orientation Not on file Plan of Treatment Health Maintenance Due Date Last Done Comments DTaP,Tdap,and Td Vaccines (1 - Tdap) 2003 Hepatitis B Vaccines (1 of 3 - 19+ 3-dose series) 2003 Cholesterol Screening (Lipid Panel) 05/31/2022 Depression Screening 05/31/2022 HIV Screening 05/31/2022 Hepatitis C Screening 05/31/2022 Social Influencers of Health Screening 05/31/2022 COVID-19 Vaccine (2023-2 5 season) 2024 Influenza Vaccine (#1) 2024 HIB Vaccines Aged Out No longer eligi ble based on patient's age to complete this topic HPV Vaccines Aged Out No longer eligi ble based on patient's age to complete this topic Hepatitis A Vaccines Aged Out No long er eligible based on patient's age to complete this topic IPV Vaccines Aged Out No longer eligi ble based on patient's age to complete this topic MMR Vaccines Aged Out No longer eligi ble based on patient's age to complete this topic Meningococcal ACWY Vaccine Aged Out N o longer eligible based on patient's age to complete this topic Meningococcal B Vacine Aged Out No lo nger eligible based on patient's age to complete this topic Pneumococcal Vaccine: Pediat rics (0 to 5 Years) and At-Risk Patients (6 to 64 Years) Aged Out No longer eligible b ased on patient's age to complete this topic RSV Immunization Patients Un annette 20 months Aged Out No longer eligible b ased on patient's age to complete this topic Varicella Vaccines Aged Out No longer eligible based on patient's age to complete this topic
[2024-09-08 10:49] VITALS: BP 117/72; PULSE 92; RESP 16; TEMP 37.1; O2SAT 100
== END 2024-09-08 10:51 | disposition home or self-care (01) ==
PROVIDERS: Emergency Provider Emergency Medicine; PCP Nurse Practitioner Family
DX: S90.122A Contusion of left lesser toe(s) without damage to nail, initial encounter (principal); M79.672 Pain in left foot; Y33.XXXA Other specified events, undetermined intent, initial encounter; Y93.01 Activity, walking, marching and hiking; Y92.003 Bedroom of unspecified non-institutional (private) residence as the place of occurrence of the external cause; Y99.8 Other external cause status
CPT/HCPCS: 73660; 99282; 99283

== ENCOUNTER → 2024-09-08 09:20 | Outpatient (BNV) | payer OTHER, SELFPAY | PROVIDERS: Emergency Provider Emergency Medicine; PCP Nurse Practitioner Family; Visit Provider Radiology Diagnostic Radiology | DX: S90.932A Unspecified superficial injury of left great toe, initial encounter (principal) | CPT/HCPCS: 73660 ==